=== PATIENT | female | born 2000 | race Caucasian/White ===

== ENCOUNTER 2019-03-05 10:25 | Emergency (ER) | payer OTHER ==
[2019-03-05 11:07] VITALS: BP 124/75
--- NOTE | 2019-03-05 11:32 | UC ---
Throat Pain/Nasal Bennie HPI - HPI Summary HPI Summary: 18 yo female with <48 hr hx of cough/congestions and mild sore throat chills no cp or sob - History of Current Complaint Chief Complaint: UCRespiratory Stated Complaint: EAR/THROAT/SINUS/HEAD COMPLAINTS Time Seen by Provider: 03/05/19 11:15 Hx Obtained From: Patient Hx Last Menstrual Period: 02/05/19 Onset/Duration: Gradual Onset Severity: Moderate Pain Intensity: 6 Pain Scale Used: 0-10 Numeric Cough: Nonproductive Associated Signs & Symptoms: Positive: Negative - Epiglottits Risk Factors Epiglottis Risk Factors: Negative - Allergies/Home Medications Allergies/Adverse Reactions: Allergies Allergy/AdvReac Type Severity Reaction Status Date / Time No Known Allergies Allergy Verified 03/05/19 10:56 Home Medications: Home Medications Cetirizine* [ZyrTEC 10 MG TAB*] 10 mg PO DAILY 03/05/19 [History Confirmed 03/05] Cholecalciferol (Vitamin D3) [Vitamin D3] 2,000 unit PO DAILY 03/05/19 [History Confirmed 03/05/19] FLUoxetine CAP* [PROzac CAP*] 20 mg PO DAILY 03/05/19 [History Confirmed ] Fenofibrate [Tricor] 54 mg PO 03/05/19 [History] Levothyroxine TAB* [Synthroid TAB*] 137 mcg PO DAILY 03/05/19 [History Confirmed 03/05/19] Multivitamin [Multivitamins] 1 cap PO DAILY 03/05/19 [History Confirmed 03/05/19 ] lamoTRIgine TAB(*) [LaMICtal TAB(*)] 200 mg PO DAILY 03/05/19 [History Confirmed 03/05/19] PMH/Surg Hx/FS Hx/Imm Hx Previously Healthy: Yes Endocrine History: Thyroid Disease, Hypothyroidism - Surgical History Surgical History: None - Family History Known Family History: Positive: Hypertension, Diabetes - Social History Alcohol Use: None Substance Use Type: None Smoking Status (MU): Never Smoked Tobacco Review of Systems All Other Systems Reviewed And Are Negative: Yes Constitutional: Positive: Fatigue Skin: Positive: Negative Eyes: Positive: Negative ENT: Positive: Epistaxis, Nasal Discharge, Sinus Congestion Respiratory: Positive: Cough Cardiovascular: Positive: Negative Gastrointestinal: Positive: Negative Genitourinary: Positive: Negative Motor: Positive: Negative Neurovascular: Positive: Negative Musculoskeletal: Positive: Negative Neurological: Positive: Negative Psychological: Positive: Negative Physical Exam Triage Information Reviewed: Yes Appearance: Well-Appearing, No Pain Distress, Well-Nourished Vital Signs: Initial Vital Signs Temp 98.5 F 03/05/19 10:59 Pulse 106 03/05/19 10:59 Resp 16 03/05/19 10:59 BP 124/75 03/05/19 10:59 Pulse Ox 99 03/05/19 10:59 Vital Signs Reviewed: Yes Eyes: Positive: Conjunctiva Clear ENT: Positive: Hearing grossly normal, Pharyngeal erythema, Nasal congestion, Nasal drainage, Uvula midline. Negative: Tonsillar exudate, Trismus, Muffled voice, Hoarse voice Dental Exam: Normal Neck: Positive: Supple, Nontender, No Lymphadenopathy Respiratory: Positive: Lungs clear, Normal breath sounds, No respiratory distress Cardiovascular: Positive: RRR, No Murmur Musculoskeletal: Positive: ROM Intact, No Edema Neurological: Positive: Alert Psychological Exam: Normal Skin Exam: Normal Diagnostics - Laboratory Lab Results: rapid strep (-) rapid influenza (-) Throat Pain/Nasal Course/Dx - Differential Dx/Diagnosis Provider Diagnosis: Viral URI Discharge ED - Sign-Out/Discharge Documenting (check all that apply): Patient Departure All imaging exams completed and their final reports reviewed: No Studies - Discharge Plan Condition: Stable Disposition: HOME Prescriptions: Benzonatate CAP* [Tessalon CAP*] 100 - 200 mg PO TID PRN #28 cap PRN Reason: Cough Referrals: No Primary Care Phys,NOPCP [Primary Care Provider] - - Billing Disposition and Condition Condition: STABLE Disposition: Home
[2019-03-05 11:45] LABS: Influenza A Molecular NEGATIVE (Negative); Influenza B Molecular NEGATIVE (Negative)
== END 2019-03-05 12:00 | disposition home or self-care (01) ==
LOC: UCCORT 10:25
DX: J06.9 Acute upper respiratory infection, unspecified (principal); E03.9 Hypothyroidism, unspecified; Z79.899 Other long term (current) drug therapy
CPT/HCPCS: 87651; 99201; G0463